=== PATIENT | male | born 1990 | race Caucasian/White ===

== ENCOUNTER 2023-10-21 09:34 | Emergency (ER) | payer SELFPAY ==
[2023-10-21 09:36] VITALS: BP 140/92
--- NOTE | 2023-10-21 10:11 | ED.MUSCINJ ---
HPI-Injury
General
Chief Complaint: Musculo-Skeletal Complaint
Source: patient
Time Seen by Provider: 10/21/23 09:54
History of Present Illness-Injury
Initial Injury comments:
33yo right hand dominant male presenting for evaluation of a right hand injury that was sustained <1 hour ago. 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 He sustained small lacerations during the
accident. He is complaining of pain and swelling to the hand. The pain is worst over the 4th metacarpal. No paresthesias. He is otherwise asymptomatic. Unknown last Tdap.
Phy Exam
Physical Exam
Physical Exam:
Right hand: Diffuse soft tissue swelling throughout dorsum of hand. There are two small <1 cm superficial lacerations to the palm without active bleeding that do not require suture repair. Fingers held in flexion. ROM of 2nd-4th fingers decreased
although patient is able to extend MCP joints. Motor and sensation intact in median, ulnar, and radial nerve distributions. 2+ radial pulse.
General Physical Exam
General Presentation: well appearing and no apparent distress
Injury Course
Orders/Labs/Results
Orders:
Orders
10/21/23 09:37
Hand, Right 3 View [CR Hand - Right Min 3 Views] Urgent
Comment:
Reason For Exam: swelling, pain
10/21/23 10:13
Rafael Wrap Right-Treatment ONCE
Comment: R hand
Tetanus/Diphth/Acelpertussis [Adacel] 0.5 ml IM .ONCE ONE
MDM/Problems Addressed
Differential Diagnosis Includes:
33yoM here after a R hand crush injury. Two small lacerations present on the palmar surface that do not require suture repair. ROM of 2nd-4th digits decreased, likely 2/2 soft tissue swelling. RUE is neurovascularly intact. Differential diagnosis
includes but is not limited to: fracture, crush injury
Wounds cleaned with iodine and saline. X-rays obtained which are negative for fractures. Imaging shows questionable foci of gas in soft tissue, likely 2/2 lacerations. Rafael wrap applied by nursing staff and Tdap updated. Supportive care discussed.
Advised f/u with orthopedics and ED return precautions discussed. He was discharged in stable condition.
*Critical Care Note
Total Time (30-74mins, 75-104mins- exclusive of procedures): Not Applicable
ED Attending Note
-
Portions of this chart may have been created with voice recognition software.� Occasional wrong word or��sound alike� substitutions may have occurred due to the inherent limitations of voice recognition software.
Discharge Plan
Departure
Patient Disposition: Home (Routine Discharge)
Date of Disposition: 10/21/23
Time of Disposition: 10:35
Patient with high blood pressure during this ER visit?: Yes
Discharge Problem:
Crushing injury of right hand, Laceration of right hand
Instructions: Crush Injury (DC)
Referrals:
UNKNOWN - PT DOES,NOT KNOW [Family Provider] -
Fuad Mcginnis MD [Active] -
Activity Restrictions/Additional Instructions:
Rest, ice, compress, and elevate your hand. Keep wound clean and dry. Take ibuprofen as needed for pain.
Please follow-up with orthopedics. Return to the ER with any worsening symptoms or signs of infection (redness, drainage, warmth, fevers).
Interventions
Interventions:
*Nursing Disposition Last Done: 10/21/23 10:47
ED-Musculoskeletal Assessment Last Done: 10/21/23 09:55
Discharge Date and Time
Discharge Date/Time: 10/21/23 10:48
Print Language: SAMI
[2023-10-21] MEDS: ADACEL 0.5 ML IM (10:41)
== END 2023-10-21 10:48 | disposition home or self-care (01) ==
LOC: EMR 09:34
PROVIDERS: EMERGENCY PHYSICIAN Emergency Medicine
DX: S67.21XA Crushing injury of right hand, initial encounter (principal); S61.411A Laceration without foreign body of right hand, initial encounter; W23.0XXA Caught, crushed, jammed, or pinched between moving objects, initial encounter; Y93.89 Activity, other specified; Y92.89 Other specified places as the place of occurrence of the external cause; Y99.0 Civilian activity done for income or pay; R03.0 Elevated blood-pressure reading, without diagnosis of hypertension; Z23 Encounter for immunization
CPT/HCPCS: 99283; 90471; 73130; 90715